=== PATIENT | female | born 1975 | race Caucasian/White ===

== ENCOUNTER 2018-03-16 10:38 | Inpatient (IN) | payer OTHER ==
[2018-03-16] MEDS ORDERED: Bisacodyl SUPP* 10 MG SUPP PR PRN (19:36)
[2018-03-16] MEDS ORDERED: Magnesium Hydroxide LIQ* 30 ML UDC PO PRN (20:02)
[2018-03-16] MEDS: Acetaminophen ADULT LIQ* 650 MG/20.3 ML UDC PO SCH (20:21)
[2018-03-16] MEDS: Chlorhexidine MOUTHWASH 0.12%* 15 ML UDC TOPICAL SCH (20:25)
[2018-03-16] MEDS: Hydrocortisone 1% CREAM* 30 GM TUBE TOPICAL SCH (20:43)
[2018-03-16] MEDS: Enoxaparin(*) 30 MG/0.3 ML SYR SUBCUT SCH (20:43)
[2018-03-16] MEDS: oxyCODONE ORAL.SOLN* 5 MG/5 ML UDC PO PRN (20:50)
[2018-03-16] MEDS ORDERED: Acetaminophen ADULT LIQ* 650 MG/20.3 ML UDC PO SCH (22:00)
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
[2018-03-17] MEDS: Acetaminophen ADULT LIQ* 650 MG/20.3 ML UDC PO SCH ×5 (03:27→19:45)
[2018-03-17] MEDS: oxyCODONE ORAL.SOLN* 5 MG/5 ML UDC PO PRN ×2 (03:56→13:06)
[2018-03-17] MEDS: Aspirin TAB* 325 MG PO SCH (08:26)
[2018-03-17] MEDS: Hydrocortisone 1% CREAM* 30 GM TUBE TOPICAL SCH ×2 (08:27→21:42)
[2018-03-17] MEDS: Chlorhexidine MOUTHWASH 0.12%* 15 ML UDC TOPICAL SCH ×2 (10:26→21:38)
[2018-03-17] MEDS: Enoxaparin(*) 30 MG/0.3 ML SYR SUBCUT SCH ×2 (10:26→21:36)
--- NOTE | 2018-03-17 12:18 | PN ---
Progress Note Date of Service: 03/17/18 Note: MACI MATHEW was visited. Therapy notes read and reviewed. She got dizzy with PT today and her BP was low. She had not done much at [facility]. Trying to get notes from NS and OMFS from [facility] Current Medications: Active Medications Generic Name Dose Route Start Last Admin Trade Name Freq PRN Reason Stop Dose Admin Acetaminophen 650 mg 03/16/18 20:30 03/17/18 08:26 Tylenol Adult Liq* PO 650 mg Q6H IRENE Administration Aspirin 325 mg 03/17/18 09:00 03/17/18 08:26 Aspirin Tab* PO 325 mg DAILY IRENE Administration Bisacodyl 10 mg 03/16/18 19:36 Dulcolax Supp* [place] DAILY PRN CONSTIPATION Chlorhexidine Gluconate 15 ml 03/16/18 21:00 03/17/18 10:26 Peridex Mouth Wash 0.12%* TOPICAL 15 ml BID IRENE Administration Enoxaparin Sodium 30 mg 03/16/18 21:00 03/17/18 10:26 Lovenox(*) SUBCUT 30 mg Q12H IRENE Administration Hydrocortisone 1 applic 03/16/18 21:00 03/17/18 08:27 Hytone Cream 1%* TOPICAL 1 applic BID IRENE Administration Lactulose 30 ml 03/16/18 19:36 03/17/18 08:26 Lactulose* PO 30 ml Q6H PRN Administration CONSTIPATION Magnesium Hydroxide 30 ml 03/16/18 20:02 03/17/18 08:27 Milk Of Magnesia Liq* PO 30 ml Q6H PRN Administration CONSTIPATION Oxycodone HCl 5 mg 03/16/18 19:44 03/17/18 03:56 Oxycodone Oral.Soln* PO 5 mg Q6H PRN Administration PAIN Vital Signs: Vital Signs Temp Pulse Resp BP Pulse Ox 99.1 F 105 16 114/62 99 03/17/18 06:16 03/17/18 06:16 03/17/18 10:27 03/17/18 06:16 03/17/18 08:00 Exam: HEENT: Ecchymoses around eyes. Jaw wired shut LUNGS: Clear HEART: reg rhythm ABDOMEN: Soft EXTREMITIES: RLE wrapped. NEUROLOGIC: Moving 4 extremities. Sensation intact Assessment/Plan: 1. Right Femur Fracture: WBAT. PT/OT 2. Bilateral Facial Fractures: Will need ENT follow up. She had jaw wired shut. Full liquid diet 3. Carotid Dissection: NS at [facility] thought no surgery needed. ASA 325 QD. Will need follow up MRA. 4. DVT Prophylaxis: Lovenox 30 SQ BID 5. Advanced Directives: Full code 6. F/E/N: Check labs in am. 03/17/18 12:18 03/17/18 14:12
--- NOTE | 2018-03-17 12:36 | PMRUTEAM ---
PMRU: Team Meeting Current Status: Nursing: Current Status Skin Deviations [right little Other toe] Skin Deviations [Right head Other near hair line anterior] Skin Deviations [right leg] Incision Skin Deviations [Left Medial Laceration Ankle] Skin Deviations [Right Groin] Previous Access Point Skin Deviations [Left Abrasion Posterior Neck] Skin Deviations [Back] Rash Skin Deviations [Right Calf] Laceration Skin Deviations [Right Upper Bruise Arm] Skin Deviation Description [ amputation with sutures; crusty right little toe] Skin Deviation Description [ scabs s/p staple removal Right head near hair line anterior] Skin Deviation Description [ X5 from posterior back to ankle sutures right leg] Skin Deviation Description [ healing;scabbed Left Medial Ankle] Skin Deviation Description [ healing Left Posterior Neck] Skin Deviation Description [ raised bumpy rash; itchy Back] Skin Deviation Description [ X3 lacerations s/p traction Right Calf] dressing to lateral wound serosanguinous drainage Physical Therapy: Current Status Bed Mobility Assistance Min Assist Transfer Moblility Assistance Contact Guard Ambulation Assistance Contact Guard 4 feet Occupational Therapy: Current Status Upper Body Dressing Supervision Lower Body Dressing Mod Assist Bathing Min Assist Toilet Transfer Contact Guard Assist Shower Transfer Contact Guard Assist Eating Ind with Adaptive Equip Rec Therapy: Current Status Summary of Assessment and Introduce RT services this afternoon (03/17/18) Clinical Impression Social Work: Current Status Discharge Plan return home with home care svs and family support Potential for Family Training pt's is invovled and supportive Anticipated Discharge Home Destination Discharge With home care svs and family support Goals: Occupational Therapy: Initial Goals Goals to be Completed in (Days 7-10 ) Upper Body Bathing Routine Modified Independent with Lower Body Bathing Routine Modified Independent with Upper Body Dressing Routine Modified Independent with Lower Body Dressing Routine Modified Independent with Toilet Hygeine and Clothing Modified Independent with Management Routine Toilet Transfer Routine Modified Independent with Step-In Shower Transfer Modified Independent with Routine Functional Transfers for ADL Modified Independent with Grooming Routine Independent Feeding Routine Modified Independent with Social Work: Goals Discharge Plan return home with home care svs and family support Potential for Family Training pt's is invovled and supportive Anticipated Discharge Home Destination Discharge With home care svs and family support Care Plan: Care Plan Coping/Psych-Improve/Maintain Start: 03/17/18 01:11 Freq: QSHIFT Status: Active Target: Protocol: Activity Type Activity Date Activity User E-Sign Co-Sign Detail Recorded Client Recorded Date Recorded By Document 03/17/18 01:14 [id number] [email or web address] 03/17/18 01:15 [id number] 03/17/18 01:14 PMRU Outcome: Coping/Psychosocial Coping Outcome/Goals Verbalization of Acceptance of Rehab Admit Willingness to Participate in Treatment Plan and Basic Needs Psychosocial Outcome/Goals Maintain/ Improve Emotional Health Cooperate/ Participate in Plan DVT Prophylaxis- Improve/Maintain Start: 03/17/18 01:11 Freq: QSHIFT Status: Active Target: Protocol: Activity Type Activity Date Activity User E-Sign Co-Sign Detail Recorded Client Recorded Date Recorded By Document 03/17/18 01:14 [id number] [email or web address] 03/17/18 01:15 [id number] 03/17/18 01:14 PMRU Outcome: DVT Prophylaxis Outcome/Goals Remains Free of DVT TEDS Stockings on Every AM, Off at HS Discharge Planning - Improve/Maintain Start: 03/17/18 01:11 Freq: DAILY Status: Active Target: Protocol: Activity Type Activity Date Activity User E-Sign Co-Sign Detail Recorded Client Recorded Date Recorded By Document 03/17/18 01:11 [id number] [email or web address] 03/17/18 01:13 [id number] 03/17/18 01:11 PMRU Outcome: Discharge Planning Update Patient Family No Outcome/Goals Demonstrates Understanding of Discharge Plan Education-Improve/Maintain Start: 03/17/18 01:11 Freq: QSHIFT Status: Active Target: Protocol: Activity Type Activity Date Activity User E-Sign Co-Sign Detail Recorded Client Recorded Date Recorded By Document 03/17/18 01:14 [id number] [email or web address] 03/17/18 01:15 [id number] 03/17/18 01:14 PMRU Outcome: Education Outcome/Goals Demonstrate/ Verbalize Understanding of Written Discharge Instructions Demonstrates Skills Encourage Questions /GI-Improve/Maintain Start: 03/17/18 01:11 Freq: QSHIFT Status: Active Target: Protocol: Activity Type Activity Date Activity User E-Sign Co-Sign Detail Recorded Client Recorded Date Recorded By Document 03/17/18 01:14 [id number] [email or web address] 03/17/18 01:15 [id number] 03/17/18 01:14 PMRU Outcome: Genitourinary/ Gastrointestinal Genitourinary- Outcome/Goals Maintain/ Achieve Urinary Continence Remain Free of Hospital- Acquired UTI Gastrointestinal-Outcome/Goals Prevent Constipation Medication Administration Start: 03/17/18 01:11 Freq: QSHIFT Status: Active Target: Protocol: Activity Type Activity Date Activity User E-Sign Co-Sign Detail Recorded Client Recorded Date Recorded By Document 03/17/18 01:14 [id number] [email or web address] 03/17/18 01:15 [id number] 03/17/18 01:14 PMRU Outcome: Medication Administration Assess Patient Knowledge/Teach Med No Education for all Meds Outcome/Goals Patient Independent with Medication Administration at Home Is Patient Going Home on Lovenox? No Neurological- Improve/Maintain Start: 03/17/18 01:11 Freq: QSHIFT Status: Active Target: Protocol: Activity Type Activity Date Activity User E-Sign Co-Sign Detail Recorded Client Recorded Date Recorded By Document 03/17/18 01:14 [id number] [email or web address] 03/17/18 01:15 [id number] 03/17/18 01:14 PMRU Outcome: Neurological Weakness/Aphasia Weakness Right Side Outcome/Goals Maintain/ Achieve Baseline Neurological Status Maintain/ Improve Strength/ROM Nutrition/Swallowing- Improve/Maintain Start: 03/17/18 01:11 Freq: QSHIFT Status: Active Target: Protocol: Activity Type Activity Date Activity User E-Sign Co-Sign Detail Recorded Client Recorded Date Recorded By Document 03/17/18 01:14 [id number] [email or web address] 03/17/18 01:15 [id number] 03/17/18 01:14 PMRU Outcome: Nutrition/Swallowing Outcome/Goals Demonstrates Adequate Hydration/ Prevents Dehydration Maintain/ Improve Nutritional Status Pain/Comfort- Improve/Maintain Start: 03/17/18 01:11 Freq: QSHIFT Status: Active Target: Protocol: Activity Type Activity Date Activity User E-Sign Co-Sign Detail Recorded Client Recorded Date Recorded By Document 03/17/18 01:14 [id number] 03/17/18 01:15 [id number] 03/17/18 01:14 PMRU Outcome: Pain/Comfort Outcome/Goals Demonstrates Knowledge and Use of Available Comfort Measures Achieves Acceptable Comfort/Pain Level as Determined by Patient/Condit Maintain Comfort Level Allowing Patient to Fully Participate in Rehab Safety- Improve/Maintain Start: 03/17/18 01:11 Freq: QSHIFT Status: Active Target: Protocol: Activity Type Activity Date Activity User E-Sign Co-Sign Detail Recorded Client Recorded Date Recorded By Document 03/17/18 01:14 [id number] [email or web address] 03/17/18 01:15 [id number] 03/17/18 01:14 PMRU Outcome: Safety Outcome/Goals Remain Free of Injury or Harm Prevent Falls/ Injury Skin- Improve/Maintain Start: 03/17/18 01:11 Freq: QSHIFT Status: Active Target: Protocol: Activity Type Activity Date Activity User E-Sign Co-Sign Detail Recorded Client Recorded Date Recorded By Document 03/17/18 01:14 [id number] 03/17/18 01:15 [id number] 03/17/18 01:14 PMRU Outcome: Skin Skin Risk Level Medium Skin Orders Turn/Position q2hr While in Bed Outcome/Goals Maintain/ Improve Skin Intergrity Surgical Incisions Healing Medicine Note: Length of Stay: 8 days Anticipated Discharge Destination: Home Tentative Discharge Date: 03/25/18 Discharged to: Home
[2018-03-18] MEDS: Acetaminophen ADULT LIQ* 650 MG/20.3 ML UDC PO SCH ×4 (02:39→20:45)
[2018-03-18 07:31] LABS: ABS Basophils 0.1 10^3/ul (0-0.2); ABS Eosinophils 0.3 10^3/ul (0-0.6); ABS Lymphocytes 1.1 10^3/ul (1.0-4.8); ABS Monocytes 0.8 10^3/ul (0-0.8); ABS Nucleated RBC 0 10^3/ul; Eosinophil % 3.1 % (0-6); Hematocrit 27 % (35-47); Hemoglobin 9.4 g/dl (12.0-16.0); Lymphocyte % 13.3 % (25-47); Mean Corpuscular HGB Conc 35 g/dl (31-36); Mean Corpuscular Hemoglobin 33 pg (27-31); Mean Corpuscular Volume 95 fL (80-97); Mean Platelet Volume 6.9 um3 (7.4-10.4); Nucleated Red Blood Cells % 0.1; Platelet Count 359 10^3/ul (150-450); Red Blood Count 2.83 10^6/ul (4.00-5.40); Red Cell Distribution Width 15 % (10.5-15); White Blood Count 8.2 10^3/ul (3.5-10.8)
[2018-03-18 07:49] LABS: EGFR Non-African American 144.6 (>60)
[2018-03-18] MEDS: Aspirin TAB* 325 MG PO SCH (08:50)
[2018-03-18] MEDS: Enoxaparin(*) 30 MG/0.3 ML SYR SUBCUT SCH ×2 (08:51→20:47)
[2018-03-18] MEDS: Chlorhexidine MOUTHWASH 0.12%* 15 ML UDC TOPICAL SCH ×2 (08:51→20:49)
[2018-03-18] MEDS: Hydrocortisone 1% CREAM* 30 GM TUBE TOPICAL SCH ×2 (08:51→21:15)
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
[2018-03-19] MEDS: Acetaminophen ADULT LIQ* 650 MG/20.3 ML UDC PO SCH ×5 (02:32→20:21)
[2018-03-19] MEDS: Enoxaparin(*) 30 MG/0.3 ML SYR SUBCUT SCH ×2 (08:17→20:22)
[2018-03-19] MEDS: Aspirin TAB* 325 MG PO SCH (08:17)
[2018-03-19] MEDS: Chlorhexidine MOUTHWASH 0.12%* 15 ML UDC TOPICAL SCH ×2 (08:17→20:29)
[2018-03-19] MEDS: Hydrocortisone 1% CREAM* 30 GM TUBE TOPICAL SCH ×2 (09:00→20:30)
--- NOTE | 2018-03-19 16:51 | PN ---
Progress Note Date of Service: 03/19/18 Note: MACI MATHEW was visited. Therapy notes read and reviewed. She has been using mainly Tylenol for pain and has not had oxycodone in 36 hours. Will increase Tylenol to 975. She is taking adequate PO Current Medications: Active Medications Generic Name Dose Route Start Last Admin Trade Name Freq PRN Reason Stop Dose Admin Acetaminophen 975 mg 03/19/18 15:00 03/19/18 15:20 Tylenol Adult Liq* PO Not Given Q6H IRENE Aspirin 325 mg 03/17/18 09:00 03/19/18 08:17 Aspirin Tab* PO 325 mg DAILY IRENE Administration Bisacodyl 10 mg 03/16/18 19:36 Dulcolax Supp* [place] DAILY PRN CONSTIPATION Chlorhexidine Gluconate 15 ml 03/16/18 21:00 03/19/18 08:17 Peridex Mouth Wash 0.12%* TOPICAL 15 ml BID IRENE Administration Enoxaparin Sodium 30 mg 03/16/18 21:00 03/19/18 08:17 Lovenox(*) SUBCUT 30 mg Q12H IRENE Administration Hydrocortisone 1 applic 03/16/18 21:00 03/19/18 09:00 Hytone Cream 1%* TOPICAL 1 applic BID IRENE Administration Lactulose 30 ml 03/16/18 19:36 03/17/18 08:26 Lactulose* PO 30 ml Q6H PRN Administration CONSTIPATION Magnesium Hydroxide 30 ml 03/16/18 20:02 03/17/18 08:27 Milk Of Magnesia Liq* PO 30 ml Q6H PRN Administration CONSTIPATION Oxycodone HCl 5 mg 03/16/18 19:44 03/17/18 13:06 Oxycodone Oral.Soln* PO 5 mg Q6H PRN Administration PAIN Vital Signs: Vital Signs Temp Pulse Resp BP Pulse Ox 98.7 F 102 16 106/63 100 03/19/18 15:46 03/19/18 15:46 03/19/18 15:46 03/19/18 15:46 03/19/18 15:46 Exam: HEENT: Ecchymoses around eyes. Jaw wired shut LUNGS: Clear HEART: reg rhythm ABDOMEN: Soft EXTREMITIES: RLE wrapped. NEUROLOGIC: Moving 4 extremities. Sensation intact Assessment/Plan: 1. Right Femur Fracture: WBAT. PT/OT 2. Bilateral Facial Fractures: Will need ENT follow up. She had jaw wired shut. Full liquid diet. Trying to get OMFS notes from [facility] 3. Carotid Dissection: NS at [facility] thought no surgery needed. ASA 325 QD. Will need follow up MRA. Asking for NS notes from [facility] 4. DVT Prophylaxis: Lovenox 30 SQ BID 5. Advanced Directives: Full code 6. F/E/N: Lytes ok. LFTs elevated, unsurprisingly. 03/19/18 16:52
[2018-03-20] MEDS: Acetaminophen ADULT LIQ* 650 MG/20.3 ML UDC PO SCH ×4 (03:11→21:16)
[2018-03-20 07:54] LABS: ABS Basophils 0.1 10^3/ul (0-0.2); ABS Eosinophils 0.2 10^3/ul (0-0.6); ABS Lymphocytes 1.4 10^3/ul (1.0-4.8); ABS Monocytes 0.7 10^3/ul (0-0.8); ABS Nucleated RBC 0 10^3/ul; Eosinophil % 2.4 % (0-6); Hematocrit 29 % (35-47); Hemoglobin 9.4 g/dl (12.0-16.0); Lymphocyte % 16.4 % (25-47); Mean Corpuscular HGB Conc 33 g/dl (31-36); Mean Corpuscular Hemoglobin 32 pg (27-31); Mean Corpuscular Volume 98 fL (80-97); Mean Platelet Volume 6.7 um3 (7.4-10.4); Nucleated Red Blood Cells % 0.1; Platelet Count 447 10^3/ul (150-450); Red Blood Count 2.94 10^6/ul (4.00-5.40); Red Cell Distribution Width 17 % (10.5-15); White Blood Count 8.3 10^3/ul (3.5-10.8)
[2018-03-20 08:09] LABS: EGFR Non-African American 137.8 (>60)
[2018-03-20] MEDS: Aspirin TAB* 325 MG PO SCH (09:02)
[2018-03-20] MEDS: Enoxaparin(*) 30 MG/0.3 ML SYR SUBCUT SCH ×2 (09:09→21:15)
[2018-03-20] MEDS: Chlorhexidine MOUTHWASH 0.12%* 15 ML UDC TOPICAL SCH ×2 (09:11→21:15)
[2018-03-20] MEDS: Hydrocortisone 1% CREAM* 30 GM TUBE TOPICAL SCH ×2 (09:13→21:15)
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
[2018-03-21] MEDS: Acetaminophen ADULT LIQ* 650 MG/20.3 ML UDC PO SCH ×4 (03:22→21:29)
[2018-03-21] MEDS: Aspirin TAB* 325 MG PO SCH (08:41)
[2018-03-21] MEDS: Chlorhexidine MOUTHWASH 0.12%* 15 ML UDC TOPICAL SCH ×2 (08:42→21:31)
[2018-03-21] MEDS: Enoxaparin(*) 30 MG/0.3 ML SYR SUBCUT SCH ×2 (08:46→21:32)
--- NOTE | 2018-03-21 10:12 | PN ---
Progress Note Date of Service: 03/21/18 Note: MACI MATHEW was visited. Nursing and therapy notes read and reviewed. No chest pain, shortness of breath or abdominal pain. Most bothered by loose tooth on left bottom row with hot/cold sensitivity. Current Medications: Active Medications Generic Name Dose Route Start Last Admin Trade Name Freq PRN Reason Stop Dose Admin Acetaminophen 975 mg 03/19/18 15:00 03/21/18 08:41 Tylenol Adult Liq* PO 975 mg Q6H IRENE Administration Aspirin 325 mg 03/17/18 09:00 03/21/18 08:41 Aspirin Tab* PO 325 mg DAILY IRENE Administration Bisacodyl 10 mg 03/16/18 19:36 Dulcolax Supp* [place] DAILY PRN CONSTIPATION Chlorhexidine Gluconate 15 ml 03/16/18 21:00 03/21/18 08:42 Peridex Mouth Wash 0.12%* TOPICAL 15 ml BID IRENE Administration Enoxaparin Sodium 30 mg 03/16/18 21:00 03/21/18 08:46 Lovenox(*) SUBCUT 30 mg Q12H IRENE Administration Hydrocortisone 1 applic 03/16/18 21:00 03/20/18 21:15 Hytone Cream 1%* TOPICAL 1 applic BID IRENE Administration Lactulose 30 ml 03/16/18 19:36 03/17/18 08:26 Lactulose* PO 30 ml Q6H PRN Administration CONSTIPATION Magnesium Hydroxide 30 ml 03/16/18 20:02 03/17/18 08:27 Milk Of Magnesia Liq* PO 30 ml Q6H PRN Administration CONSTIPATION Oxycodone HCl 5 mg 03/16/18 19:44 03/17/18 13:06 Oxycodone Oral.Soln* PO 5 mg Q6H PRN Administration PAIN Vital Signs: Vital Signs Temp Pulse Resp BP Pulse Ox 98.6 F 97 20 108/67 98 03/21/18 06:09 03/21/18 06:09 03/21/18 06:09 03/21/18 06:09 03/21/18 06:09 Exam: GEN: no acute distress. alert and appropriate. LUNGS: Clear to auscultation bilaterally. CV: regular rate and rhythm ABD: + bowel sounds, soft, non-tender, non-distended EXT: Some edema of right toes and leg. Right groin cath site is clean and intact. NEURO: Upper and lower extremity motor 5/5 bilaterally with limited testing of right knee and hip. Some impaired sensation in a radial sensory distribution on right and non-specific in right leg that she thinks may be related to edema. X-ray right hand and wrist on 03/20/18 showed no fractures. Assessment/Plan: 1. Right Femur Fracture: WBAT. PT/OT. Received ortho operative report. On Friday request for local provider to f/u as outpatient. 2. Bilateral Facial Fractures: Will need ENT follow up. She had jaw wired shut. Full liquid diet. OMFS notes from [facility] did not come with others and medical records is closed on the weekend. Call [facility] on Friday to request again. 3. Carotid Dissection: NS at [facility] thought no surgery needed. ASA 325 QD. Will need follow up MRA in 3 months. Received endovascular NS notes from [facility]. On Friday request for local provider to f/u as outpatient. 4. DVT Prophylaxis: Lovenox 30 SQ BID 5. Advanced Directives: Full code 6. F/E/N: LFTs improving despite use of tylenol. 7. 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 No weakness apparent and she thinks they may be improving. If persistent with time may be worth more testing or evaluation. 8. Right wrist pain: X-ray right hand and wrist on 03/20/18 showed no fractures. Ortho f/u after discharge. 9. Tooth sensitivity: may have underlying tooth fracture and will need OMFS f/ u. Will try benzocaine oral gel before meals/po. 10. Estimated LOS: 03/25/18. 03/21/18 10:14
[2018-03-21] MEDS: Hydrocortisone 1% CREAM* 30 GM TUBE TOPICAL SCH ×2 (10:29→21:35)
[2018-03-21] MEDS: Benzocaine (DENTAL) 7.5%* 10 GM TOP.GEL TOPICAL PRN ×2 (11:59→16:47)
[2018-03-22] MEDS: Acetaminophen ADULT LIQ* 650 MG/20.3 ML UDC PO SCH ×4 (03:09→21:04)
[2018-03-22] MEDS: Benzocaine (DENTAL) 7.5%* 10 GM TOP.GEL TOPICAL PRN ×2 (08:05→16:59)
[2018-03-22] MEDS: Aspirin TAB* 325 MG PO SCH (09:06)
[2018-03-22] MEDS: Enoxaparin(*) 30 MG/0.3 ML SYR SUBCUT SCH ×2 (09:11→21:07)
[2018-03-22] MEDS: Chlorhexidine MOUTHWASH 0.12%* 15 ML UDC TOPICAL SCH ×2 (09:48→21:11)
--- NOTE | 2018-03-22 10:19 | PN ---
Progress Note Date of Service: 03/22/18 Note: MACI MATHEW was visited. Nursing and therapy notes read and reviewed. Oral gel helps with tooth pain a little. Best is just to have luke warm oral intake. No new issues. Current Medications: Active Medications Generic Name Dose Route Start Last Admin Trade Name Freq PRN Reason Stop Dose Admin Acetaminophen 975 mg 03/19/18 15:00 03/22/18 09:07 Tylenol Adult Liq* PO 975 mg Q6H IRENE Administration Aspirin 325 mg 03/17/18 09:00 03/22/18 09:06 Aspirin Tab* PO 325 mg DAILY IRENE Administration Benzocaine 1 applic 03/21/18 10:12 03/22/18 08:05 Baby Orajel 7.5%* TOPICAL 1 applic QID PRN Administration tooth pain Bisacodyl 10 mg 03/16/18 19:36 Dulcolax Supp* [place] DAILY PRN CONSTIPATION Chlorhexidine Gluconate 15 ml 03/16/18 21:00 03/22/18 09:48 Peridex Mouth Wash 0.12%* TOPICAL 15 ml BID IRENE Administration Enoxaparin Sodium 30 mg 03/16/18 21:00 03/22/18 09:11 Lovenox(*) SUBCUT 30 mg Q12H IRENE Administration Hydrocortisone 1 applic 03/16/18 21:00 03/21/18 21:35 Hytone Cream 1%* TOPICAL Not Given BID IRENE Lactulose 30 ml 03/16/18 19:36 03/17/18 08:26 Lactulose* PO 30 ml Q6H PRN Administration CONSTIPATION Magnesium Hydroxide 30 ml 03/16/18 20:02 03/17/18 08:27 Milk Of Magnesia Liq* PO 30 ml Q6H PRN Administration CONSTIPATION Vital Signs: Vital Signs Temp Pulse Resp BP Pulse Ox 99.8 F 98 16 106/60 98 03/22/18 06:31 03/22/18 06:31 03/22/18 06:31 03/22/18 06:31 03/22/18 06:31 Exam: GEN: no acute distress. alert and appropriate. LUNGS: Clear to auscultation bilaterally. CV: regular rate and rhythm ABD: + bowel sounds, soft, non-tender, non-distended EXT: Some edema of right toes. NEURO: Upper and lower extremity motor 5/5 bilaterally with limited testing of right knee and hip. Some impaired sensation in a radial sensory distribution on right and non-specific in right leg. Assessment/Plan: 1. Right Femur Fracture: WBAT. PT/OT. Received ortho operative report. On Friday request for local provider to f/u as outpatient. 2. Bilateral Facial Fractures: Will need ENT follow up. She had jaw wired shut. Full liquid diet. OMFS notes from [facility] did not come with others and medical records is closed on the weekend. Call [facility] on Friday to request again. 3. Carotid Dissection: NS at [facility] thought no surgery needed. ASA 325 QD. Will need follow up MRA in 3 months. Received endovascular NS notes from [facility]. On Friday request for local provider to f/u as outpatient. 4. DVT Prophylaxis: Lovenox 30 SQ BID. Teach self administration. 5. Advanced Directives: Full code 6. F/E/N: LFTs improving despite use of tylenol. 7. 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 No weakness apparent and she thinks they may be improving. If persistent with time may be worth more testing or evaluation. 8. Right wrist pain: X-ray right hand and wrist on 03/20/18 showed no fractures. Ortho f/u after discharge. 9. Tooth sensitivity: may have underlying tooth fracture and will need OMFS f/ u. Benzocaine oral gel before meals/po. 10. Right small toe amputation: teach patient to do dressing changes. 11. Estimated LOS: 03/25/18. 03/22/18 10:17
[2018-03-22] MEDS: Hydrocortisone 1% CREAM* 30 GM TUBE TOPICAL SCH ×2 (12:18→21:11)
[2018-03-23] MEDS: Acetaminophen ADULT LIQ* 650 MG/20.3 ML UDC PO SCH ×5 (03:13→21:02)
[2018-03-23] MEDS: Benzocaine (DENTAL) 7.5%* 10 GM TOP.GEL TOPICAL PRN (08:10)
[2018-03-23] MEDS: Aspirin TAB* 325 MG PO SCH (09:08)
[2018-03-23] MEDS: Chlorhexidine MOUTHWASH 0.12%* 15 ML UDC TOPICAL SCH ×2 (09:09→21:01)
[2018-03-23] MEDS: Enoxaparin(*) 30 MG/0.3 ML SYR SUBCUT SCH ×2 (09:10→21:01)
[2018-03-23] MEDS: Hydrocortisone 1% CREAM* 30 GM TUBE TOPICAL SCH ×2 (09:14→21:05)
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
[2018-03-24] MEDS: Acetaminophen ADULT LIQ* 650 MG/20.3 ML UDC PO SCH ×2 (03:15→09:17)
[2018-03-24 06:02] VITALS: BP 104/62
[2018-03-24] MEDS: Aspirin TAB* 325 MG PO SCH (09:17)
[2018-03-24] MEDS: Enoxaparin(*) 30 MG/0.3 ML SYR SUBCUT SCH (09:20)
[2018-03-24] MEDS: Chlorhexidine MOUTHWASH 0.12%* 15 ML UDC TOPICAL SCH (09:51)
[2018-03-24] MEDS: Hydrocortisone 1% CREAM* 30 GM TUBE TOPICAL SCH (09:52)
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
== END 2018-03-24 13:08 | disposition home health service (06) | DRG 860 ==
LOC: PMRU 18:47
PROVIDERS: ADMIT Physical Medicine & Rehabilitation; ATTEND Physical Medicine & Rehabilitation
PROC: F07Z5ZZ Bed Mobility Treatment (ICD-10-PCS; principal; 2018-03-16)
PROC: F07Z9ZZ Gait Training/Functional Ambulation Treatment (ICD-10-PCS; 2018-03-16)
PROC: F07Z8ZZ Transfer Training Treatment (ICD-10-PCS; 2018-03-16)
PROC: F08Z0ZZ Bathing/Showering Techniques Treatment (ICD-10-PCS; 2018-03-16)
PROC: F08Z1ZZ Dressing Techniques Treatment (ICD-10-PCS; 2018-03-16)
PROC: F08Z3ZZ Feeding/Eating Treatment (ICD-10-PCS; 2018-03-16)
DX: S72.91XD Unspecified fracture of right femur, subsequent encounter for closed fracture with routine healing (principal); I77.71 Dissection of carotid artery; S02.411D LeFort I fracture, subsequent encounter for fracture with routine healing; S02.412 LeFort II fracture; S02.2XXD Fracture of nasal bones, subsequent encounter for fracture with routine healing; V79 Bus occupant injured in other and unspecified transport accidents; S09.90XD Unspecified injury of head, subsequent encounter; M25.531 Pain in right wrist; S02.5XXD Fracture of tooth (traumatic), subsequent encounter for fracture with routine healing; Z89.421 Acquired absence of other right toe(s); Z79.1 Long term (current) use of non-steroidal anti-inflammatories (NSAID); Z79.82 Long term (current) use of aspirin; Z79.891 Long term (current) use of opiate analgesic; Z79.899 Other long term (current) drug therapy; S94.8X Injury of other nerves at ankle and foot level
CPT/HCPCS: 36415; 80053; 85025; A9270-GY; J1650

== ENCOUNTER 2018-04-06 08:09 | Emergency (ER) | payer BC, OTHER ==
--- OUTSIDE RECORDS SUMMARY | 2018-04-06 08:16 | XMS REPORT ---
:1975 External Reference #:[id number] Author Organization [employer] Address [address] [address] [place] [address] Phone [phone] Care Team Providers Name Role Phone Martin Moraes MD Primary Care Physician Unavailable Payers Type Date Identification Numbers Payment Provider Subscriber Workers Compensation Onset: Policy Number: State Justyn Alvarado 2018 [id number] PayID: [id number] [address] [place] [address] Problems Description No Information Family History Date Family Member(s) Problem(s) Comments General Hypertension General Cancer Social History Type Date Description Comments Lives With Spouse Occupation [employer]el B[employer] ETOH Use Currently consumes alcohol Smoking Patient has never smoked Exercise Type/Frequency Exercises regularly Allergies, Adverse Reactions, Alerts Description No Information Medications Medication Date Status Form Strength Qnty SIG Indications Ordering Provider Acetaminophen 00/00/ Active Liquid 160mg/5ML Unknown 0000 Aspirin Ec / Active Tablets DR 325mg 1 tablet by Unknown 0000 mouth daily Chlorhexidine / Active Solution 0.12% swish and Unknown Gluconate 0000 spit 15 milliliters twice a day until resolution of symptoms Enoxaparin 00/ Active Solution 30mg/0.3M every 12 Unknown Sodium 0000 L hours Benzocaine / Hx Powder four times Unknown 0000 - daily for 03/30/ tooth pain 2018 Vital Signs Date Vital Result Comment 03/31/2018 Height 68 inches 5'8" Weight 125.00 lb Heart Rate 80 /min BP Systolic 100 mmHg BP Diastolic 64 mmHg Pain Level 2 BMI (Body Mass Index) 19.0 kg/m2 Results Description No Information Procedures Description No Information Plan of Care Future Appointment(s):04/28/2018 1:30 pm - Shant Melo MD at [facility]03/31/2018 - Shant Melo, [id number] Displaced comminuted fracture of shaft of right femur, initFollow up:3 [id number] Complete traumatic amputation of one right lesser toe, init
[2018-04-06 08:32] VITALS: BP 114/75
[2018-04-06] MEDS ORDERED: Sodium Phosphate ADULT ENEMA* 118 ml bottle PR ONE (08:50)
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
== END 2018-04-06 09:55 | disposition home or self-care (01) ==
LOC: UCEAST 08:09
DX: K59.00 Constipation, unspecified (principal); Z91.013 Allergy to seafood
CPT/HCPCS: 82272; 99212; A9270-GY; G0463

== ENCOUNTER 2024-03-18 08:23 | Observation (INO) ==
[2024-03-18] MEDS ORDERED: Albuterol/Ipratropium NEB.SOL (2.5/0.5 MG) 3 ML NEB.SOLN ONE (10:07)
[2024-03-18] MEDS: Albuterol/Ipratropium NEB.SOL (2.5/0.5 MG) 3 ML NEB.SOLN INH ONE ×3 (10:12→16:21)
[2024-03-18 10:41] LABS: ABS Eosinophils 0.1 10^3/uL (0.0-0.5); ABS Lymphocytes 1.1 10^3/uL (1.0-4.8); ABS Monocytes 0.5 10^3/uL (0.0-0.9); ABS Neutrophils 3.4 10^3/uL (1.5-7.6); Eosinophil % 1.2 %; Hematocrit 40.8 % (35-45); Hemoglobin 13.9 g/dL (11.5-14.3); Lymphocyte % 21.4 %; Mean Corpuscular Hemoglobin 30.6 pg (27-33); Mean Corpuscular Hgb Conc 34.1 g/dL (31-36); Mean Corpuscular Volume 89.8 fL (80-97); Mean Platelet Volume 6.3 fL (7.5-11.2); Nucleated Red Blood Cells % 0.1 %/100WBC (0.0-0.8); Platelet Count 529 10^3/uL (150-450); Red Blood Count 4.55 10^6/uL (3.63-4.92); White Blood Count 5.1 10^3/uL (3.8-11.8)
[2024-03-18 10:49] LABS: INR 1.07 (0.85-1.14)
[2024-03-18] MEDS: methylPREDNISolone SOD SUCC 125 mg 2 ML VIAL IV ONE (10:56)
[2024-03-18] MEDS: Lactated Ringers 1000 ml BAG 1,000 ML IV ONE (11:01)
[2024-03-18 11:29] LABS: Albumin 4.1 g/dL (3.2-5.2); Albumin/Globulin Ratio 1.2 (1-3); Calcium 9.5 mg/dL (8.6-10.3); Creatinine, Serum 0.67 mg/dL (0.51-0.95); Globulin 3.4 g/dL (2-4); Potassium 4.7 mmol/L (3.5-5.0); Total Bilirubin 0.8 mg/dL (0.2-1.0); Total Protein 7.5 g/dL (6.4-8.9); eGFR CKD-EPI 107.1 (>60)
[2024-03-18 12:27] LABS: High Sensitivity Troponin 1 Hr 3 pg/mL (<15)
[2024-03-18] MEDS: Iohexol 350 (CONTRAST) 500 ML MDV IV ONE (12:49)
[2024-03-18] MEDS ORDERED: Docusate LIQ 100 MG/10 ML UDC ONE (13:42)
[2024-03-18] MEDS: cefTRIAXone 1 gm/50 mL D5W 1 GM/50 ML BAG IV ONE (13:45)
[2024-03-18] MEDS: Docusate LIQ 100 MG/10 ML UDC PO PRN (13:50)
[2024-03-18] MEDS: Azithromycin 500 mg/250 ml NS 500 MG/250 ML BAG IVPB ONE (14:40)
[2024-03-18] MEDS: Albuterol/Ipratropium NEB.SOL (2.5/0.5 MG) 3 ML NEB.SOLN INH SCH ×2 (17:15→19:00)
[2024-03-18] MEDS: Enoxaparin 40 MG/0.4 ML SYR SUBCUT SCH (17:18)
[2024-03-18] MEDS ORDERED: guaiFENesin/CODIENE 100mg/10mg 5 ML UDC PO PRN (17:25)
[2024-03-19 06:46] LABS: ABS Lymphocytes 1.1 10^3/uL (1.0-4.8); ABS Monocytes 0.8 10^3/uL (0.0-0.9); ABS Neutrophils 9.8 10^3/uL (1.5-7.6); ABS Nucleated RBC 0.01 10^3/ul; Hematocrit 32.6 % (35-45); Hemoglobin 11.3 g/dL (11.5-14.3); Lymphocyte % 9.5 %; Mean Corpuscular Hgb Conc 34.7 g/dL (31-36); Mean Corpuscular Volume 92.1 fL (80-97); Mean Platelet Volume 6.4 fL (7.5-11.2); Platelet Count 492 10^3/uL (150-450); Red Blood Count 3.54 10^6/uL (3.63-4.92); Red Cell Distribution Width 12.9 % (12-17); White Blood Count 11.6 10^3/uL (3.8-11.8)
[2024-03-19 06:59] LABS: Calcium 8.7 mg/dL (8.6-10.3); Creatinine, Serum 0.56 mg/dL (0.51-0.95); Magnesium 2.2 mg/dL (1.9-2.7); Potassium 4.4 mmol/L (3.5-5.0); eGFR CKD-EPI 111.8 (>60)
[2024-03-19] MEDS ORDERED: Azithromycin 500 mg/250 ml NS 500 MG/250 ML BAG IVPB SCH (08:00)
[2024-03-19] MEDS ORDERED: cefTRIAXone 1 gm/50 mL D5W 1 GM/50 ML BAG IV SCH (09:00)
[2024-03-19] MEDS: Carbamide Peroxide 6.5% OTIC 15 ML BTL BOTH EARS ONE (11:33)
[2024-03-19 14:13] VITALS: BP 91/66
[2024-03-19] MEDS: Carbamide Peroxide 6.5% OTIC 15 ML BTL BOTH EARS SCH (14:38)
== END 2024-03-19 16:50 | disposition home or self-care (01) ==
LOC: EDHOLD 08:23 → ED 08:23 → MED 16:04
PROVIDERS: ADMIT Internal Medicine; ATTEND Internal Medicine